=== PATIENT | male | born 1985 | race African-American/Black ===

== ENCOUNTER 2022-12-30 20:48 | Emergency (ER) | payer SELFPAY ==
[~2022-12-30] VITALS: Ht 195.6 cm; Wt 119.6 kg
[2022-12-30 21:48] LABS: BASOPHILS % 0.6 % (0.0-2.0); EOSINOPHILS % 2.4 % (0.0-5.0); HEMATOCRIT. 50.4 % (42.0-52.0); HEMOGLOBIN. 16.7 g/dL (14.0-18.0); LYMPHOCYTES % 29.1 % (20.0-50.0); MEAN CORPUSCULAR HEMOGLOBIN 27.9 pg (28.0-32.0); MEAN CORPUSCULAR VOLUME 84.1 fL (80.0-94.0); NEUTROPHILS % 59.9 % (40.0-76.0); RED BLOOD CELL COUNT 5.99 mill/uL (4.7-6.1); RED CELL DISTRIBUTION WIDTH 13.1 % (11.6-14.6)
[2022-12-30 21:59] LABS: CHLORIDE 102 mEq/L (98-107)
[2022-12-30 22:05] LABS: CLARITY URINE CLEAR (CLEAR); COLOR URINE DARK YELLOW (YELLOW); KETONES URINE TRACE (NEGATIVE); LEUKOCYTE ESTERASE URINE NEGATIVE (NEGATIVE); NITRITE URINE NEGATIVE (NEGATIVE); OCCULT BLOOD URINE NEGATIVE (NEGATIVE); PROTEIN URINE TRACE (NEGATIVE); SPECIFIC GRAVITY URINE 1.048 (1.005-1.030)
[2022-12-30 22:16] LABS: MEAN PLATELET VOLUME 11.3 fl (7.4-10.4); PLATELET 152 x1000/uL (130-400)
[2022-12-31] MEDS ORDERED: IBUPROFEN 600MG TABLET PO STA (01:22)
[2022-12-31] MEDS ORDERED: DOCU-138 MT (05:25)
[2022-12-31] MEDS ORDERED: CIPR-263 MT (05:25)
[2022-12-31] MEDS ORDERED: IBUP-2028 MT (05:25)
[2022-12-31] MEDS ORDERED: METR375C2 MT (05:25)
[2022-12-31 06:20] VITALS: BP 130/98
== END 2022-12-31 06:21 | disposition home or self-care (01) ==
LOC: ER 20:48
DX: R10.32 Left lower quadrant pain (principal); J45.909 Unspecified asthma, uncomplicated
CPT/HCPCS: 36415; 74176; 80053; 81003; 85025; 99284; 99285